=== PATIENT | female | born 1945 | race Caucasian/White ===

== ENCOUNTER → 2016-10-26 | Outpatient (CLI) | payer OTHER ==
[~2016-10-26] MED LIST: ACIDOPHILUS PO; ASPIRIN 32325 MG/TAB PO; DIABETA5 MG PO; FLOMAX 0.40.4 MG/CAP PO; LISINOPRIL-HYDR1 TA1 PO; LOVAZA1 GM PO; MULTIPLE VITAMI1 CAP PO; NIACIN500 M3 PO; PERCOCET 325 MG1 TA2 PO; VITAMIN D31000 IU PO; ZOFRAN ODT4 MG PO
== END ==
LOC: MC.RAD 11:20
DX: Z12.31 Encounter for screening mammogram for malignant neoplasm of breast (principal)

== ENCOUNTER 2017-01-22 22:38 | Emergency (ER) | payer OTHER, MEDICARE ==
[~2017-01-22] VITALS: Ht 162.6 cm; Wt 82.3 kg
[~2017-01-22 22:38] MED LIST changes: -FLOMAX 0.40.4 MG/CAP PO; -PERCOCET 325 MG1 TA2 PO; -ZOFRAN ODT4 MG PO
[2017-01-22 22:42] VITALS: TEMP 97.8
[2017-01-22 23:18] LABS: PH 8 (5-8); SQUAMOUS EPITHELIAL 0-2 /hpf; URINE APPEARANCE Clear; URINE BACTERIA None Seen /hpf; URINE BILIRUBIN Negative (NEGATIVE); URINE BLOOD 2+ (NEGATIVE); URINE COLOR Yellow; URINE GLUCOSE 2+ (NEGATIVE); URINE KETONE Negative (NEGATIVE); URINE RBC >50 /hpf; URINE UROBILINOGEN Negative (NEGATIVE)
[2017-01-22 23:52] LABS: BASO % 0.3 % (0.0-2.0); EOS % 0.2 % (0-4.0); GRAN # 10.2 (1.4-6.5); GRAN % 84.1 % (42.2-75.2); HEMATOCRIT 38.6 % (37.0-47.0); HEMOGLOBIN 12.7 g/dl (12.5-16.0); LYMPH # 1.3 (1.2-3.4); LYMPH % 10.7 % (20.0-51.0); MEAN CELL VOLUME 81 fl (80.0-100.0); MEAN CORPUSCULAR HEMOGLOBIN 27 pg (27.0-31.0); MEAN CORPUSCULAR HGB CONC 33 g/dl (33.0-37.0); MEAN PLATELET VOLUME 9.9 fl (7.4-10.4); MONO # 0.4 (0.1-0.6); MONO % 3.5 % (1.7-9.3); PLATELET COUNT 250 K/mm3 (130-400); RED BLOOD COUNT 4.78 M/mm3 (4.10-5.30); REDCELL DISTRIBUTION WIDTH-CV 14.9 % (11.5-14.5); WHITE BLOOD COUNT 12.1 K/mm3 (4.8-10.8)
[2017-01-22 23:59] LABS: CALCIUM 9.2 mg/dL (8.4-10.2); CREATININE, serum 0.63 mg/dL (0.52-1.25); POTASSIUM 3.6 mmol/L (3.4-5.0)
[2017-01-23] MEDS ORDERED: PERCOCET 325 MG1 TA2 PO (01:05)
[2017-01-23] MEDS ORDERED: FLOMAX 0.40.4 MG/CAP PO (01:05)
[2017-01-23] MEDS ORDERED: ZOFRAN ODT4 MG PO (01:05)
[2017-01-23 01:30] VITALS: BP 159/73; PULSE 65
== END 2017-01-23 01:30 | disposition home or self-care (01) ==
LOC: COL.ER 22:38
PROVIDERS: Emergency Medicine
DX: N20.1 Calculus of ureter (principal); E11.9 Type 2 diabetes mellitus without complications; I10 Essential (primary) hypertension; Z79.4 Long term (current) use of insulin; Z79.84 Long term (current) use of oral hypoglycemic drugs; Z79.82 Long term (current) use of aspirin; Z90.49 Acquired absence of other specified parts of digestive tract

== ENCOUNTER → 2017-11-25 | Outpatient (CLI) | payer OTHER ==
[~2017-11-25] MED LIST changes: +FLOMAX 0.40.4 MG/CAP PO; +PERCOCET 325 MG1 TA2 PO; +ZOFRAN ODT4 MG PO
== END ==
LOC: MC.RAD 07:00
DX: Z12.31 Encounter for screening mammogram for malignant neoplasm of breast (principal)

== ENCOUNTER 2018-09-22 13:45 | Emergency (ER) | payer OTHER ==
[~2018-09-22] VITALS: Ht 160 cm; Wt 86.4 kg
[2018-09-22 14:01] VITALS: BP 144/72; TEMP 98.9
[2018-09-22 14:44] LABS: HEMATOCRIT 40.7 % (37.0-47.0); HEMOGLOBIN 13.5 g/dl (12.5-16.0); MEAN CELL VOLUME 81 fl (80.0-100.0); MEAN CORPUSCULAR HEMOGLOBIN 27 pg (27.0-31.0); MEAN CORPUSCULAR HGB CONC 33 g/dl (33.0-37.0); MEAN PLATELET VOLUME 10.2 fl (7.4-10.4); PLATELET COUNT 249 K/mm3 (130-400); RED BLOOD COUNT 5.05 M/mm3 (4.10-5.30); REDCELL DISTRIBUTION WIDTH-CV 14.4 % (11.5-14.5)
[2018-09-22 15:16] LABS: ALBUMIN 4.4 gm/dL (3.5-5.0); BILIRUBIN,TOTAL 1.4 mg/dL (0.0-1.0); C-REACTIVE PROTEIN 4.9 mg/dL (0.0-0.9); CALCIUM 9.8 mg/dL (8.4-10.2); CREATININE, serum 0.73 (0.52-1.25); POTASSIUM 3.7 mmol/L (3.4-5.0); TOTAL PROTEIN 8.7 gm/dL (6.4-8.2)
[2018-09-22 15:26] LABS: BAND 7 % (0-10); EOSINOPHIL 1 % (0-4); LYMPHOCYTE 4 % (20.0-51.0); NEUTROPHILS 84 % (42.0-75.2); PLATELET ESTIMATE NORMAL (NORMAL)
[2018-09-22 15:27] LABS: STOMATOCYTE 1+
[2018-09-22 16:40] LABS: COLLECTION METHOD CLEAN CATCH
[2018-09-22 16:49] LABS: MUCOUS Present /lpf; PH 5 (5-8); SQUAMOUS EPITHELIAL 0-2 /hpf; URINE APPEARANCE Clear; URINE BACTERIA None Seen /hpf; URINE BILIRUBIN Negative (NEGATIVE); URINE BLOOD Negative (NEGATIVE); URINE COLOR Amber; URINE GLUCOSE Negative (NEGATIVE); URINE KETONE Negative (NEGATIVE); URINE LEUKOCYTE ESTERASE Negative (NEGATIVE); URINE NITRATE Negative (NEGATIVE); URINE PROTEIN(semi-quant) 1+ (NEGATIVE); URINE RBC 0-2 /hpf; URINE UROBILINOGEN >=4.0 mg/dL (NEGATIVE)
[2018-09-22] MEDS ORDERED: ZOFRAN ODT4 MG PO (17:14)
[2018-09-22] MEDS ORDERED: CEPHALEXIN500 M1 PO (17:14)
[2018-09-22 17:55] VITALS: PULSE 68
== END 2018-09-22 17:52 | disposition home or self-care (01) ==
LOC: COL.ER 13:45
PROVIDERS: Family Medicine
DX: N30.90 Cystitis, unspecified without hematuria (principal); R79.89 Other specified abnormal findings of blood chemistry; E11.9 Type 2 diabetes mellitus without complications; I10 Essential (primary) hypertension; Z79.82 Long term (current) use of aspirin
CPT/HCPCS: J1885; J2405; J2550; J7030

== ENCOUNTER → 2018-11-23 | Outpatient (CLI) | payer OTHER ==
[~2018-11-23] MED LIST changes: +CEPHALEXIN500 M1 PO
== END ==
LOC: SUN.DIA 10-09 15:27 → DIA.ED 11-02 14:39 → SUN.DIA 11-02 15:51 → DIA.ED 09:13
DX: E11.9 Type 2 diabetes mellitus without complications (principal); E78.5 Hyperlipidemia, unspecified; I10 Essential (primary) hypertension; E66.9 Obesity, unspecified; Z79.4 Long term (current) use of insulin

== ENCOUNTER → 2018-12-06 | Outpatient (CLI) | payer OTHER | LOC: DIA.ED 10:32 | DX: E11.9 Type 2 diabetes mellitus without complications (principal); E78.5 Hyperlipidemia, unspecified; I10 Essential (primary) hypertension; E66.9 Obesity, unspecified | CPT/HCPCS: G0108 ==

== ENCOUNTER → 2018-12-13 | Outpatient (CLI) | payer OTHER | LOC: DIA.ED 13:19 | DX: E11.9 Type 2 diabetes mellitus without complications (principal); E78.5 Hyperlipidemia, unspecified; I10 Essential (primary) hypertension; E66.9 Obesity, unspecified; Z79.4 Long term (current) use of insulin | CPT/HCPCS: G0109 ==

== ENCOUNTER → 2018-12-21 | Outpatient (CLI) | payer OTHER | LOC: MC.RAD 12-19 16:45 | DX: Z12.31 Encounter for screening mammogram for malignant neoplasm of breast (principal) ==

== ENCOUNTER → 2018-12-22 | Outpatient (CLI) | payer OTHER ==
[2018-12-23 02:23] LABS: RHEUMATOID FACTOR-SCREEN <15 IU/mL (0-29)
== END ==
LOC: COL.LAB 09:40
PROVIDERS: Orthopaedic Surgery
DX: M79.641 Pain in right hand (principal)

== ENCOUNTER → 2019-01-03 | Outpatient (CLI) | payer OTHER | LOC: DIA.ED 09:21 | DX: E11.9 Type 2 diabetes mellitus without complications (principal); E78.5 Hyperlipidemia, unspecified; E66.9 Obesity, unspecified; I10 Essential (primary) hypertension; Z79.4 Long term (current) use of insulin | CPT/HCPCS: G0109 ==

== ENCOUNTER → 2020-01-22 | Outpatient (CLI) | payer OTHER | LOC: MC.RAD 12-25 16:45 | DX: Z12.31 Encounter for screening mammogram for malignant neoplasm of breast (principal) ==

== ENCOUNTER → 2021-11-03 | Outpatient (CLI) | payer OTHER | LOC: DIA.ED 09:27 | DX: E11.65 Type 2 diabetes mellitus with hyperglycemia (principal); Z79.4 Long term (current) use of insulin; E78.5 Hyperlipidemia, unspecified; I10 Essential (primary) hypertension | CPT/HCPCS: G0108 ==

== ENCOUNTER 2021-11-12 18:05 | Emergency (ER) | payer OTHER ==
[~2021-11-12] VITALS: Ht 160 cm; Wt 77.3 kg
[2021-11-12 18:56] LABS: COLLECTION METHOD CLEAN CATCH
[2021-11-12 19:09] LABS: MUCOUS Present (NOT PRESENT); PH 5 (5-8); URINE APPEARANCE Hazy (CLEAR/HAZY); URINE BACTERIA None Seen /hpf (NONE SEEN); URINE BILIRUBIN Negative (NEGATIVE); URINE BLOOD Negative (NEGATIVE); URINE COLOR Yellow (YELLOW); URINE GLUCOSE 3+ (NEGATIVE); URINE KETONE Negative (NEGATIVE); URINE LEUKOCYTE ESTERASE Negative (NEGATIVE); URINE NITRATE Negative (NEGATIVE); URINE PROTEIN(semi-quant) 2+ (NEGATIVE); URINE RBC 0-2 /hpf (0-2); URINE UROBILINOGEN Negative (NEGATIVE)
[2021-11-12 19:25] LABS: BASO % 0.3 % (0.0-2.0); EOS % 0.1 % (0.0-4.0); GRAN # 5.4 K/mm3 (1.4-6.5); GRAN % 74.6 % (42.2-75.2); HEMATOCRIT 44.5 % (37.0-47.0); HEMOGLOBIN 14.8 g/dl (12.5-16.0); LYMPH # 0.9 K/mm3 (1.2-3.4); LYMPH % 12.1 % (20.0-51.0); MEAN CELL VOLUME 83 fl (80.0-100.0); MEAN CORPUSCULAR HEMOGLOBIN 28 pg (27-31); MEAN CORPUSCULAR HGB CONC 33 g/dl (33.0-37.0); MEAN PLATELET VOLUME 10.5 fl (7.4-10.4); MONO # 0.9 K/mm3 (0.1-0.6); MONO % 12.5 % (1.7-9.3); PLATELET COUNT 239 K/mm3 (130-400); RED BLOOD COUNT 5.34 M/mm3 (4.10-5.30); REDCELL DISTRIBUTION WIDTH-CV 13.9 % (11.5-14.5)
[2021-11-12 19:44] LABS: ALBUMIN 3.4 gm/dL (3.4-4.8); BILIRUBIN,TOTAL 0.6 mg/dL (0.2-1.2); CALCIUM 9.1 mg/dL (8.4-10.2); CREATININE, serum 1.05 mg/dL (0.57-1.11); POTASSIUM 3.7 mmol/L (3.5-4.5); TOTAL PROTEIN 7.8 gm/dL (6.2-8.1)
[2021-11-12 19:51] LABS: TROPONIN-I 0.018 ng/mL (0.00-0.033)
[2021-11-12 20:38] VITALS: TEMP 98.5
[2021-11-12 21:00] VITALS: BP 164/77; PULSE 63
== END 2021-11-12 21:15 | disposition home or self-care (01) ==
LOC: COL.ER 18:05
PROVIDERS: Nurse Practitioner Primary Care
DX: U07.1 COVID-19 (principal); I10 Essential (primary) hypertension; E11.9 Type 2 diabetes mellitus without complications
CPT/HCPCS: J2405; J7030; Q9967

== ENCOUNTER → 2022-01-07 | Outpatient (CLI) | payer OTHER | LOC: DIA.ED | DX: E11.65 Type 2 diabetes mellitus with hyperglycemia (principal); Z79.4 Long term (current) use of insulin; E78.5 Hyperlipidemia, unspecified; I10 Essential (primary) hypertension | CPT/HCPCS: G0108 ==

== ENCOUNTER 2022-07-12 22:03 | Emergency (ER) | payer SELFPAY ==
[~2022-07-12] VITALS: Ht 162.6 cm; Wt 85.0 kg
[2022-07-12 22:05] VITALS: TEMP 98.3
[2022-07-12 23:18] LABS: HEMATOCRIT 40.4 % (37.0-47.0); HEMOGLOBIN 13.7 g/dl (12.5-16.0); MEAN CELL VOLUME 83 fl (80.0-100.0); MEAN CORPUSCULAR HEMOGLOBIN 28 pg (27-31); MEAN CORPUSCULAR HGB CONC 34 g/dl (33.0-37.0); MEAN PLATELET VOLUME 10.1 fl (7.4-10.4); PLATELET COUNT 261 K/mm3 (130-400); RED BLOOD COUNT 4.86 M/mm3 (4.10-5.30); REDCELL DISTRIBUTION WIDTH-CV 13.4 % (11.5-14.5)
[2022-07-12 23:31] LABS: ALBUMIN 3.7 gm/dL (3.4-4.8); BILIRUBIN,TOTAL 0.5 mg/dL (0.2-1.2); CREATININE, serum 1.06 mg/dL (0.57-1.11); POTASSIUM 3.8 mmol/L (3.5-4.5); TOTAL PROTEIN 7.8 gm/dL (6.2-8.1)
[2022-07-13 00:03] LABS: LYMPHOCYTE 38 % (20.0-51.0); NEUTROPHILS 61 % (42.0-75.2); PLATELET ESTIMATE NORMAL (NORMAL)
[2022-07-13 01:32] VITALS: BP 137/85; PULSE 66
== END 2022-07-13 01:52 | disposition home or self-care (01) ==
LOC: COL.ER 22:03
PROVIDERS: Nurse Practitioner
DX: S16.1XXA Strain of muscle, fascia and tendon at neck level, initial encounter (principal); S29.012A Strain of muscle and tendon of back wall of thorax, initial encounter; S50.312A Abrasion of left elbow, initial encounter; S20.212A Contusion of left front wall of thorax, initial encounter; R51.9 Headache, unspecified; I10 Essential (primary) hypertension; V43.52XA Car driver injured in collision with other type car in traffic accident, initial encounter; Y92.410 Unspecified street and highway as the place of occurrence of the external cause
CPT/HCPCS: J0360; J3010; Q9967

== ENCOUNTER 2023-06-28 21:31 | Emergency (ER) | payer OTHER ==
[~2023-06-28] VITALS: Ht 160 cm; Wt 77.3 kg
[~2023-06-28 21:31] MED LIST changes: +ACIDOPHILIS PO; -ACIDOPHILUS PO; +APRESOLINE 25MG25 MG PO; +GLUCOTROL XL10 MG PO; +HCTZ 25MG TAB25 MG PO; +INSULIN N (N100 U/ML SQ; +MOUNJARO5 MG/0.5 M SQ; +NORVASC 5MG5 MG/TAB PO; +PAXIL40 MG PO; +PRINIVIL10 MG PO
[2023-06-28 21:33] VITALS: TEMP 98.6
[2023-06-28] MEDS ORDERED: Morphine 4 MG/ML VIAL IV ONE ×2 (21:45→22:00)
[2023-06-28] MEDS ORDERED: Ondansetron 4 MG/2 ML VIAL IV ONE (21:45)
[2023-06-28 21:55] LABS: ARTERIAL BLD GAS O2 SATURATION 91.1 % (92-100); ARTERIAL BLD GAS TCO2 CT 18.8; ARTERIAL BLOOD GAS BASE EXCESS -4.5 (-2-2); ARTERIAL BLOOD GAS HCO3 17.9 meq/L (22-26); ARTERIAL BLOOD GAS PCO2 26.6 mmHg (35-45); ARTERIAL BLOOD GAS PO2 61.9 mmHg (80-100); ARTERIAL BLOOD GAS pH 7.45 (7.35-7.45)
[2023-06-28 21:56] LABS: BASO # 0.1 K/mm3 (0.0-0.2); BASO % 0.3 % (0.0-2.0); GRAN # 13.9 K/mm3 (1.4-6.5); GRAN % 83.1 % (42.2-75.2); HEMATOCRIT 41.2 % (37.0-47.0); HEMOGLOBIN 13.5 g/dl (12.5-16.0); LYMPH # 1.3 K/mm3 (1.2-3.4); LYMPH % 7.9 % (20.0-51.0); MEAN CELL VOLUME 87 fl (80.0-100.0); MEAN CORPUSCULAR HEMOGLOBIN 29 pg (27-31); MEAN CORPUSCULAR HGB CONC 33 g/dl (33.0-37.0); MONO # 1.3 K/mm3 (0.1-0.6); PLATELET COUNT 356 K/mm3 (130-400); RED BLOOD COUNT 4.72 M/mm3 (4.10-5.30); REDCELL DISTRIBUTION WIDTH-CV 13.5 % (11.5-14.5)
[2023-06-28 22:04] LABS: ALBUMIN 3.1 gm/dL (3.4-4.8); BILIRUBIN,TOTAL 1.1 mg/dL (0.2-1.2); CALCIUM 9.7 mg/dL (8.4-10.2); CREATININE, serum 0.88 mg/dL (0.57-1.11); POTASSIUM 4.1 mmol/L (3.5-4.5); TOTAL PROTEIN 7.4 gm/dL (6.2-8.1)
[2023-06-28 22:12] LABS: TROPONIN-I 0.055 ng/mL (0.00-0.033)
[2023-06-28] MEDS ORDERED: DESYREL 50MG50 MG PO (22:12)
[2023-06-28 22:13] LABS: INR 1.4 (0.8-3.0); PROTHROMBIN TIME 14.9 SECONDS (9.7-12.8)
[2023-06-28] MEDS ORDERED: SILVADENE CREAM1 TU TP (22:13)
[2023-06-28] MEDS ORDERED: CIPRO 500MG TA500 MG PO (22:13)
[2023-06-28] MEDS ORDERED: GENTAMICIN TOPI15 GM TP (22:13)
[2023-06-28] MEDS ORDERED: MOUNJARO5 MG/0.5 M SQ (22:14)
[2023-06-28 22:15] LABS: PARTIAL THROMBOPLASTIN TIME 30.7 SECONDS (26.0-37.0)
[2023-06-28] MEDS ORDERED: DOPamine/Dextrose 5%-Water 250 ML IV ONE (22:15)
[2023-06-28] MEDS ORDERED: ACTOS 15MG TAB15 MG PO (22:15)
[2023-06-28] MEDS ORDERED: NORVASC 5MG5 MG/TAB PO (22:15)
[2023-06-28] MEDS ORDERED: PRILOSEC 20MG20 MG PO (22:15)
[2023-06-28] MEDS ORDERED: fentaNYL 50 MCG/ML 2 ML VIAL IV ONE (22:15)
[2023-06-28] MEDS ORDERED: TOPROL XL100 MG PO (22:15)
[2023-06-28] MEDS ORDERED: NOVOLIN N100 U/ML SQ (22:17)
[2023-06-28] MEDS ORDERED: APRESOLINE 25MG25 MG PO (22:17)
[2023-06-28] MEDS ORDERED: PAXIL40 MG PO (22:18)
[2023-06-28] MEDS ORDERED: CRESTOR20 MG PO (22:18)
[2023-06-28] MEDS ORDERED: VITAMIN D31000 I1 PO (22:20)
[2023-06-28] MEDS ORDERED: ASPIRIN 81M81 MG/TA2 PO (22:20)
[2023-06-28] MEDS ORDERED: EPA FISH OIL1 SGL PO (22:20)
[2023-06-28] MEDS ORDERED: SANTYL30 TP (22:21)
[2023-06-28] MEDS ORDERED: cefTRIAXone 1 G in Water For Injection,Sterile 10 ML IV ONE (22:30)
[2023-06-28] MEDS ORDERED: Furosemide 40 MG/4 ML VIAL IV ONE ×2 (22:30→23:00)
[2023-06-28] MEDS ORDERED: methylPREDNISolone Sod Succ 125 MG/2 ML VIAL IV ONE (22:30)
[2023-06-28] MEDS ORDERED: Glucagon 1 MG VIAL IV ONE (22:45)
[2023-06-28] MEDS ORDERED: Midazolam 2 MG/2 ML VIAL IV ONE (22:45)
[2023-06-28 23:11] LABS: COLLECTION METHOD CATHETER
[2023-06-28 23:20] VITALS: BP 165/57; PULSE 36
[2023-06-28 23:20] LABS: PH 5.5 (5.0-8.5); URINE APPEARANCE CLEAR (CLEAR/HAZY); URINE BLOOD NEGATIVE (NEGATIVE); URINE COLOR YELLOW (YELLOW); URINE GLUCOSE 3+ (NEGATIVE); URINE KETONE 1+ (NEGATIVE); URINE NITRATE NEGATIVE (NEGATIVE); URINE PROTEIN(semi-quant) 2+ (NEGATIVE); URINE UROBILINOGEN 0.2 E.U/dL (0.2-1.0)
== END 2023-06-28 23:34 | disposition short-term general hospital (02) ==
LOC: COL.ER 21:31
PROVIDERS: Emergency Medicine
DX: I11.0 Hypertensive heart disease with heart failure (principal); I50.1 Left ventricular failure, unspecified; I44.2 Atrioventricular block, complete; E11.65 Type 2 diabetes mellitus with hyperglycemia; R79.89 Other specified abnormal findings of blood chemistry; R09.02 Hypoxemia; Z79.899 Other long term (current) drug therapy
CPT/HCPCS: A4314; J0696; J1265; J1610; J1940; J2250; J2270; J2405; J2930; J3010

== ENCOUNTER 2023-11-24 22:36 | Inpatient (IN) | payer MEDICARE ==
[~2023-11-24] VITALS: Ht 160 cm; Wt 76.8 kg
[~2023-11-24 22:36] MED LIST changes: +ACTOS 15MG TAB15 MG PO; +ASPIRIN 81M81 MG/TA2 PO; +CIPRO 500MG TA500 MG PO; +CRESTOR20 MG PO; +DESYREL 50MG50 MG PO; +EPA FISH OIL1 SGL PO; +GENTAMICIN TOPI15 GM TP; +NOVOLIN N100 U/ML SQ; +PRILOSEC 20MG20 MG PO; +SANTYL30 TP; +SILVADENE CREAM1 TU TP; +TOPROL XL100 MG PO; +VITAMIN D31000 I1 PO
[2023-11-24 23:10] LABS: BASO % 0.2 % (0.0-2.0); EOS % 0.2 % (0.0-4.0); GRAN # 14.2 K/mm3 (1.4-6.5); GRAN % 83.3 % (42.2-75.2); HEMATOCRIT 39.9 % (37.0-47.0); HEMOGLOBIN 13.3 g/dl (12.5-16.0); LYMPH # 1.4 K/mm3 (1.2-3.4); LYMPH % 8.4 % (20.0-51.0); MEAN CELL VOLUME 83 fl (80.0-100.0); MEAN CORPUSCULAR HEMOGLOBIN 28 pg (27-31); MEAN CORPUSCULAR HGB CONC 33 g/dl (33.0-37.0); MEAN PLATELET VOLUME 9.8 fl (7.4-10.4); MONO # 1.3 K/mm3 (0.1-0.6); MONO % 7.4 % (1.7-9.3); PLATELET COUNT 385 K/mm3 (130-400); RED BLOOD COUNT 4.83 M/mm3 (4.10-5.30); REDCELL DISTRIBUTION WIDTH-CV 13.2 % (11.5-14.5)
[2023-11-24 23:19] LABS: COLLECTION METHOD CATHETER
[2023-11-24 23:24] LABS: ALBUMIN 2.9 g/dL (3.4-4.8); BILIRUBIN,TOTAL 0.7 mg/dL (0.2-1.2); C-REACTIVE PROTEIN 27.83 mg/dL (0.00-0.50); CALCIUM 9.9 mg/dL (8.4-10.2); CREATININE, serum 1.03 mg/dL (0.57-1.11); POTASSIUM 3.9 mEq/L (3.5-4.5)
[2023-11-24 23:29] LABS: TROPONIN-I 0.015 ng/mL (0.00-0.033)
[2023-11-24 23:32] LABS: PH 5.5 (5.0-8.5); URINE APPEARANCE CLEAR (CLEAR/HAZY); URINE BLOOD NEGATIVE (NEGATIVE); URINE COLOR YELLOW (YELLOW); URINE GLUCOSE 3+ (NEGATIVE); URINE KETONE TRACE (NEGATIVE); URINE NITRATE NEGATIVE (NEGATIVE); URINE PROTEIN(semi-quant) 1+ (NEGATIVE); URINE UROBILINOGEN 0.2 E.U/dL (0.2-1.0)
[2023-11-24] MEDS ORDERED: NS 1,000 ML IV ONE (23:45)
[2023-11-25] VITALS (10 sets, daily range): BP systolic 119–176; BP diastolic 72–92; PULSE 68–88; TEMP 97.8–99.8
[2023-11-25] MEDS ORDERED: NS 50 ML IV SCH (00:01)
[2023-11-25] MEDS ORDERED: Iohexol 300 - 100 ML VIAL IV ONE (00:01)
[2023-11-25] MEDS ORDERED: Acetaminophen 500 MG TAB PO ONE (01:15)
[2023-11-25] MEDS ORDERED: Insulin Glargine-ygfn (Lantus) SQ ONE (01:15)
[2023-11-25] MEDS ORDERED: hydrALAZINE 20 MG/ML 1 ML VIAL IV ONE (01:15)
[2023-11-25] MEDS ORDERED: cefTRIAXone 1 G in Water For Injection,Sterile 10 ML IV ONE (02:00)
[2023-11-25] MEDS ORDERED: Ondansetron 4 MG/2 ML VIAL IV PRN (02:30)
[2023-11-25] MEDS ORDERED: Acetaminophen 325 MG TAB PO PRN (02:30)
[2023-11-25] MEDS ORDERED: Albuterol/Ipratropium 3 MG-0.5 MG/3 ML Neb Soln IH PRN (02:30)
[2023-11-25] MEDS ORDERED: hydrALAZINE 20 MG/ML 1 ML VIAL IV PRN (02:30)
[2023-11-25] MEDS ORDERED: Dextrose 50% Water 25 GM/50 ML SYRINGE IV PRN (03:00)
[2023-11-25] MEDS ORDERED: Dextrose (Glucose) 15 GM (4 x 3.75 GM) Chewable TABLET PACK PO PRN (03:00)
[2023-11-25] MEDS ORDERED: Glucagon 1 MG VIAL IM PRN (03:00)
[2023-11-25] MEDS ORDERED: Azithromycin 500 MG in NS 250 ML IV SCH (03:00)
[2023-11-25] MEDS ORDERED: NS 1,000 ML IV ONE (03:30)
--- NOTE | 2023-11-25 03:30 | NUR ---
PT ARRIVED TO THE UNIT VIA GURNEY BY MINER. ABLE TO AMBULATE WITH ONE PERSON ASSIST TO THE BATHROOM TO URINATE. BG RECHECK AND SSI GIVEN PER PROVIDER. PT C/O MILD LEFT EPIGASTRIC PAIN RATED 6/10, TYLENOL GIVEN. ADMISSION ASSESSMENT COMPLETE AND MED REQ SOMEWHAT ATTEMPTED HOWEVER BC PT HAS NOT TAKEN HER MEDS FOR ABOUT A WEEK SHE IS UNCERTAIN ABOUT THE LAST TIME SHE TOOK THEM. PT DOES REPORT FALLING DOWN A DRIVEWAY AND HAS A HEALING ABRASION TO HER LEFT KNEE AND IS UNCERTAIN OF TIMEFRAME ON THE FALL. MEMORY IS NOT RALIABLE NEEDS CONSTANT REMINDERS AND CUES. FALL PRECAUTONS IN PLACE, CALL LIGHT WITHIN REACH. PT ALSO ORIENTED TO THE ROOM AND AWARE THAT WED LIKE HER TO CALL TO GET UP TO THE RESTROOM.
[2023-11-25] MEDS ORDERED: NOVOLIN R100 UNIT/1 (04:03)
[2023-11-25] MEDS ORDERED: LANTUS100 U/ML SQ (04:05)
[2023-11-25] MEDS ORDERED: Insulin Lispro (HumaLOG) SQ SCH (04:45)
[2023-11-25] MEDS ORDERED: Clopidogrel 75 MG TAB PO SCH (09:00)
--- NOTE | 2023-11-25 09:30 | NUR ---
PATIENT SITTING IN BED EATING BREAKFAST THIS MORNING. SHIFT ASSESSMENT COMPLETED. IVF INFUSING. PATIENT HAVING DIFFICULTY TAKING DEEP BREATHES AND EXPERIENCES DYSPNEA ON EXCERTION. COMPLAINS OF L SIDED UPPER BODY PAIN, MEDICATION GIVEN PER eMAR. A SPECIALTY BED WAS ORDERED DUE TO PATIENTS RECENT HISTORY OF WOUNDS. PATIENT DENIES ANY ADDITIONAL NEEDS AT THIS TIME. CALL LIGHT WITHIN REACH. WILL CONTINUE TO MONITOR.
--- NOTE | 2023-11-25 09:43 | NUR ---
PATIENT NOW COMPLAINS OF 10/10 PAIN TO LEFT UPPER BODY. THIS RN SPOKE WITH DR. COLON AND INSTRUCTED TO GIVE 5MG ROXICODONE. THIS RN THEN NOTED THAT PATIENT HAS A HISTORY OF OPIOID ALLERGIES. DISCUSSED WITH ROBERTO, PHARMACIST, AND INSTRUCTIONS TO ADMINISTER FIRST DOSE AND MONITOR FOR ADVERSE REACTIONS. DISCUSSED WITH PATIENT AND SHE IS COMFORTABLE WITH THIS.
[2023-11-25] MEDS ORDERED: oxyCODONE 5 MG TAB PO PRN (09:45)
[2023-11-25] MEDS ORDERED: CRESTOR20 MG PO (10:33)
[2023-11-25] MEDS ORDERED: PAXIL40 MG PO (10:34)
[2023-11-25] MEDS ORDERED: PRILOSEC 20MG20 MG PO (10:35)
[2023-11-25] MEDS ORDERED: ADALAT CC30 MG PO (10:35)
[2023-11-25] MEDS ORDERED: NEURONTIN600 MG/TAB PO (10:35)
[2023-11-25] MEDS ORDERED: APRESOLINE 10MG10 MG PO (10:36)
[2023-11-25] MEDS ORDERED: PLAVIX 75MG TAB75 MG PO (10:36)
[2023-11-25] MEDS ORDERED: VITAMIN D31000 I1 PO (10:37)
[2023-11-25] MEDS ORDERED: EPA FISH OIL1 SGL PO (10:37)
[2023-11-25] MEDS ORDERED: COREG 25MG25 MG/TAB PO (10:38)
[2023-11-25] MEDS ORDERED: LANTUS SOLOS100 U/ML SQ (10:39)
[2023-11-25] MEDS ORDERED: INSULIN AS100 UNIT/3 SQ ×2 (10:40→10:41)
[2023-11-25] MEDS ORDERED: PARoxetine HCL 10 MG TABLET PO SCH (11:30)
[2023-11-25 11:54] LABS: INR 1.3 (0.8-3.0); PROTHROMBIN TIME 14.3 SECONDS (9.7-12.8)
[2023-11-25] MEDS ORDERED: [UNRECOGNIZED DRUG - OTHER] VG SCH (12:00)
[2023-11-25] MEDS ORDERED: MICONAZOLE VG SCH (12:00)
[2023-11-25] MEDS ORDERED: MELATIN 3 MG-11 TAB PO (12:41)
--- NOTE | 2023-11-25 13:28 | NUR ---
D: C[employer] Plant Worker stopped by room on rounds. A: Pt was resting and content sitting in her chair. Pt is retired from working with the fire department. Pt asked for prayer, assignment editor prayed with her. Pt appreciated the visit. P: [employer] Plant Worker informed pt that if she needed anything else from the assignment editor area to let her nurse know. C[employer] Con[employer] Plant Worker will follow up as needed.
[2023-11-25] MEDS ORDERED: Gabapentin 300 MG CAP PO SCH (14:00)
[2023-11-25 14:12] LABS: INR 1.3 (0.8-3.0); PROTHROMBIN TIME 14.6 SECONDS (9.7-12.8)
--- NOTE | 2023-11-25 15:30 | NUR ---
sand control worker and SW Student attempted to meet with patient but she is currently in a procedure. SW reviewed PT and OT recommendations. PT recommended home with family, OT recommended HH vs SNF. SW contacted patient's daughter, Татьяна, whom expressed patient's son, Toby, was now in the patient's room and the social work therapist could speak with him. SW and SW Student met with patient's son, Toby. Toby reported he believes patient's PCP is Dr. Shelton, pharmacy is [facility]. Toby was uncertain if patient had a DPOA-HC but if so it would either but him or Татьяна. DME is walker and cane. Toby stated patient was doing well with the cane up until a couple days ago she started using the walker more. Toby reported normally patient had been independent with ADLS and could drive sometimes but has Татьяна or Toby to transport when needed. SW discussed discharge planning. SW explained PT and OT recommendations and provided the Medicare.gov list of options for HH and SNF. Toby reported he was uncertain what the patient would want at this time but she has had both services before. Toby reported patient was at [facility] for rehab before and does not believe she would be opposed to going to a nursing facility for rehab if recommended by the hospital team. SW explained social work would continue to follow patient's care and determine what services would be recommended for patient. Discharge plan: Home pending PT and OT recommendations
[2023-11-25] MEDS ORDERED: cefTRIAXone 1 G in Water For Injection,Sterile 10 ML IV SCH (21:00)
[2023-11-25] MEDS ORDERED: Atorvastatin 40 MG TAB PO SCH (21:00)
[2023-11-25] MEDS ORDERED: Rosuvastatin 20 MG **** subs to Atorvastatin 40 MG PO SCH (21:00)
--- NOTE | 2023-11-25 23:48 | NUR ---
PT ALERT AND ORIENTED, YET FORGETFUL AND IN NEED OF REMINDERS. VERY PLEASANT AND AFTER PROCEDURE TODAY IS FEELING MUCH BETTER, DOES C/O OF SOME MODERATE BACK PAIN RATED 7/10, PAIN MED ADMINISTERED. VITAL SIGNS WNL AND IS ABLE TO AMBULATE TO RESTROOM WITH ONE PERSON ASSIST. SHIFT ASSESSMENT COMPLETED, ALL HS MEDS ADMINISTERED. IV TO RW PATENT. FALL PRECAUTIONS IN PLACE CALL LIGHT WITHIN REACH.
[2023-11-25 23:51] LABS: BODY FLUID PH (AMS) 8 (())
[2023-11-26] VITALS (14 sets, daily range): BP systolic 108–176; BP diastolic 60–81; PULSE 78–96; TEMP 97.9–100.7
[2023-11-26 06:14] LABS: BASO % 0.2 % (0.0-2.0); EOS # 0.1 K/mm3 (0.0-0.7); EOS % 0.7 % (0.0-4.0); GRAN # 14.7 K/mm3 (1.4-6.5); GRAN % 83.4 % (42.2-75.2); LYMPH # 1.4 K/mm3 (1.2-3.4); LYMPH % 7.7 % (20.0-51.0); MEAN CORPUSCULAR HGB CONC 33 g/dl (33.0-37.0); MEAN PLATELET VOLUME 10.2 fl (7.4-10.4); MONO # 1.3 K/mm3 (0.1-0.6); MONO % 7.3 % (1.7-9.3); PLATELET COUNT 356 K/mm3 (130-400); RED BLOOD COUNT 4.07 M/mm3 (4.10-5.30); REDCELL DISTRIBUTION WIDTH-CV 13.4 % (11.5-14.5)
[2023-11-26 06:16] LABS: HEMATOCRIT 33.5 % (37.0-47.0); MEAN CELL VOLUME 82 fl (80.0-100.0); MEAN CORPUSCULAR HEMOGLOBIN 27 pg (27-31)
[2023-11-26 06:32] LABS: CALCIUM 9.1 mg/dL (8.4-10.2); CREATININE, serum 0.84 mg/dL (0.57-1.11); POTASSIUM 3.5 mEq/L (3.5-4.5)
--- NOTE | 2023-11-26 07:40 | NUR ---
Bedside report received from DANIELLE Rivera. Pt resting in bed with no complaints. Call light within reach.
[2023-11-26 08:25] LABS: PLEURAL FLUID RBC 4000 /mm3 (0-0); PLEURAL FLUID WBC 5137 /mm3
[2023-11-26 08:26] LABS: PLEURAL FLUID COLOR YELLOW
[2023-11-26 08:27] LABS: PLEURAL FLUID APPEARANCE CLOUDY
--- NOTE | 2023-11-26 08:29 | NUR ---
Pt awake in bed eating breakfast. Shift assessment completed. VSS. Pt repositioned in bed per request. INT to Rt forearm CDI. Pt states she has generalized pain rating 3/10. Telemetry in place. Pt has no request at this time. Call light within reach and fall precautions in place.
[2023-11-26] MEDS ORDERED: Clopidogrel 75 MG TAB PO SCH (09:00)
[2023-11-26] MEDS ORDERED: Omega-3 Fatty Acid Esters (OTC) 1,000 MG CAP PO SCH (09:00)
[2023-11-26] MEDS ORDERED: Cholecalciferol (Vit D3) 1000 Units TAB PO SCH (09:00)
[2023-11-26] MEDS ORDERED: Insulin Glargine-ygfn (Lantus) SQ SCH (09:00)
--- NOTE | 2023-11-26 14:15 | NUR ---
Data: Patient politely declined spiritual care visit offered during Crutcher Helper rounds. Patient was eating her lunch. Assessment: None. Patient declined. Plan of Care: Chaplains will remain available as needed/requested while Patient is admitted to this hospital.
[2023-11-27] VITALS (14 sets, daily range): BP systolic 134–184; BP diastolic 68–91; PULSE 69–85; TEMP 97.9–98.6
--- NOTE | 2023-11-27 01:51 | NUR ---
Pt sitting up in recliner at beginning of shift and had been up most of the day. Agrreable of getting back into bed, has mild pain rated 4/10 in back, tylenol given.Incision site on back CDI with bandage covering. Assessed, all HS meds administered. Call light within reach, fall precautions in place.
[2023-11-27 06:54] LABS: BASO % 0.3 % (0.0-2.0); EOS # 0.2 K/mm3 (0.0-0.7); EOS % 1.7 % (0.0-4.0); GRAN # 8.7 K/mm3 (1.4-6.5); GRAN % 75.4 % (42.2-75.2); HEMOGLOBIN 10.4 g/dl (12.5-16.0); LYMPH # 1.6 K/mm3 (1.2-3.4); LYMPH % 13.7 % (20.0-51.0); MEAN CELL VOLUME 83 fl (80.0-100.0); MEAN CORPUSCULAR HEMOGLOBIN 27 pg (27-31); MEAN CORPUSCULAR HGB CONC 32 g/dl (33.0-37.0); MEAN PLATELET VOLUME 10.2 fl (7.4-10.4); MONO % 8.4 % (1.7-9.3); PLATELET COUNT 358 K/mm3 (130-400); RED BLOOD COUNT 3.88 M/mm3 (4.10-5.30); REDCELL DISTRIBUTION WIDTH-CV 13.5 % (11.5-14.5)
[2023-11-27 06:59] LABS: HEMATOCRIT 32.2 % (37.0-47.0)
[2023-11-27 07:10] LABS: CREATININE, serum 0.81 mg/dL (0.57-1.11); POTASSIUM 3.3 mEq/L (3.5-4.5)
--- NOTE | 2023-11-27 07:11 | NUR ---
Bedside report received from DANIELLE Rivera. Pt resting in bed with no complaints. Call light within reach.
--- NOTE | 2023-11-27 08:45 | NUR ---
Pt awake in bed eating breakfast. Shift assessment completed. VSS. INT to Rt forearm patent with no swelling, redness, or drainage. Pt is A&O x4. Pt has complaints of generalized pain rating 4/10. Telemetry in place. Pt has no complaints at this time. Call light within reach and fall precautions in place.
--- NOTE | 2023-11-27 20:00 | NUR ---
Assessment complete. A&Ox3. Denies nausea/shortness of breath. VS stable-received hydralazine at 1900 due to elevated blood pressure. Down to 160s/80s now. TELE reorting regular paced. Currently on RA. 20g right AC INT flushes without difficulty. No s/s of infiltration noted. Bandaid to left side/back CDI. Plan of care discussed for this shift to include meds/pain control/calling for questions/concerns. Verbalizes understanding. Call light in reach. Will monitor.
--- NOTE | 2023-11-27 23:45 | NUR ---
Report from PCT that patients blood pressure is 180s/80s. Taken by this nurse manually-148/62. Also c/o pain to left side/back-rating pain 5/10 on pain scale. Oxcycodone given per dr order. Will monitor.
--- NOTE | 2023-11-28 01:51 | NUR ---
Patient resting eyes closed. No s/s of pain or discomfort noted. Will monitor.
[2023-11-28 03:34] VITALS: BP 164/88; PULSE 73; TEMP 98.3
[2023-11-28 03:48] VITALS: BP_SYST 164
--- NOTE | 2023-11-28 05:44 | NUR ---
Patient had an uneventful night. Did received one dose of hydralazine at this change for elevated blood pressure of 180s/80s. C/O pain and received tylenol with no relief-oxycodone given x2 with good results. INT to right AC flushes without difficulty-no s/s of infiltration noted. Currently on RA. Denies current questions/concerns. Call light in reach. Will monitor.
--- NOTE | 2023-11-28 07:13 | NUR ---
Bedside report received from DANIELLE Alberto. Pt awake in bed with no complaints. Call light within reach and fall precautions in place.
[2023-11-28 07:17] LABS: BASO % 0.3 % (0.0-2.0); EOS # 0.2 K/mm3 (0.0-0.7); EOS % 1.6 % (0.0-4.0); GRAN # 9.1 K/mm3 (1.4-6.5); GRAN % 76.7 % (42.2-75.2); HEMOGLOBIN 10.8 g/dl (12.5-16.0); LYMPH # 1.6 K/mm3 (1.2-3.4); LYMPH % 13.7 % (20.0-51.0); MEAN CELL VOLUME 84 fl (80.0-100.0); MEAN CORPUSCULAR HEMOGLOBIN 26 pg (27-31); MEAN CORPUSCULAR HGB CONC 31 g/dl (33.0-37.0); MEAN PLATELET VOLUME 9.9 fl (7.4-10.4); MONO # 0.8 K/mm3 (0.1-0.6); MONO % 6.8 % (1.7-9.3); PLATELET COUNT 406 K/mm3 (130-400); RED BLOOD COUNT 4.09 M/mm3 (4.10-5.30); REDCELL DISTRIBUTION WIDTH-CV 13.5 % (11.5-14.5)
[2023-11-28 07:23] LABS: HEMATOCRIT 34.4 % (37.0-47.0)
[2023-11-28 07:36] LABS: CALCIUM 9.2 mg/dL (8.4-10.2); CREATININE, serum 0.73 mg/dL (0.57-1.11); POTASSIUM 3.4 mEq/L (3.5-4.5)
[2023-11-28 07:40] VITALS: BP 196/98; PULSE 90; TEMP 98.4
[2023-11-28 08:19] VITALS: BP_SYST 196
--- NOTE | 2023-11-28 08:20 | NUR ---
Pt awake in room finishing breakfast upon entry to room. Pt requesting to use bathroom. Assisted pt to bathroom and to recliner with no complications. Shift assessment completed. VSS with an elevated BP of 196/98. PRN Hydralazine administered per emar. Pt denies pain at this time. INT to Rt forearm patent with no swelling, redness, or drainage. Pt paced on telemetry. Pt has no complaints at this time. Call light within reach and fall precautions in place.
[2023-11-28] MEDS ORDERED: LEVAQUIN 750MG750 M1 PO (08:43)
[2023-11-28] MEDS ORDERED: FLUCONAZOLE PO ONE (08:45)
[2023-11-28] MEDS ORDERED: NIFEdipine XL 30 MG TAB PO SCH (09:00)
[2023-11-28] MEDS ORDERED: Carvedilol 25 MG TAB PO SCH (09:00)
[2023-11-28] MEDS ORDERED: Azithromycin 250 MG TAB PO SCH (09:00)
[2023-11-28] MEDS ORDERED: ROXICODONE 55 MG/TAB PO (10:41)
[2023-11-28] MEDS ORDERED: levoFLOXacin 750 MG TAB PO SCH (10:45)
[2023-11-28 11:40] VITALS: BP 175/76; PULSE 74; TEMP 97.4
[2023-11-28 12:37] VITALS: BP_SYST 175
--- NOTE | 2023-11-28 12:37 | NUR ---
Discharge instructions provided to pt and pt verbalized understanding of discharge paperwork. INT to Rt AC discontinued with tip intact, pt tolerated well with no complaints. Telemetry discontinued. Pt is leaving facility with daughter back to home.
--- NOTE | 2023-11-28 15:43 | NUR ---
bilingual social worker met with patient to discuss discharge planning. SW mentioned OT recommendations on Tuesday was HH vs SNF. Patient reports to be open to SNF and would like a referral to [facility] as she has been there in the past. SW faxed referral to [facility]. SW as notified by [facility] that patient only has 3 days left of her Medicare days before she would need to private pay. ERNESTINA spoke with PT whom expressed patient did well with her and her walker and would recommend home with home health. SW met with patient and discussed the above information. Patient agreed she would like to return home with home health. Patient reports she currently has [facility] with nursing so she would like to add PT and OT through them. SW explained patient has 30 days from hospital discharge if she were to need SNF she could get set up through her PCP. SW reviewed important message from Medicare. Patient understood and signed form. ERNESTINA made copy, placed original in chart and provided copy to patient. ERNESTINA notified [facility] patient will return home with home health. ERNESTINA Student faxed referral to [facility]. SW was notified by [facility] that they are able to accept patient. ERNESTINA contacted patient's daughter and discussed the discharge plan. Patient's daughter is in agreement with the plan for her to return home with home health. ERNESTINA explained patient has 30 days from day of discharge to go to a SNF if she were to need those services in the next month. Patient's daughter understood and will transport patient home. No further questions or concerns. Discharge plan: Home with [facility]
== END 2023-11-28 13:15 | disposition home or self-care (01) | DRG 689 ==
LOC: COL.ER 22:36 → MEDICAL 11-25 02:04
PROVIDERS: Nurse Practitioner; Physician Assistant; ADMIT Internal Medicine
PROC: 0W9B3ZZ Drainage of Left Pleural Cavity, Percutaneous Approach (ICD-10-PCS; principal; 2023-11-25)
DX: N39.0 Urinary tract infection, site not specified (principal); J18.9 Pneumonia, unspecified organism; J90 Pleural effusion, not elsewhere classified; I44.2 Atrioventricular block, complete; E11.65 Type 2 diabetes mellitus with hyperglycemia; E11.40 Type 2 diabetes mellitus with diabetic neuropathy, unspecified; B37.9 Candidiasis, unspecified; E78.5 Hyperlipidemia, unspecified; B95.2 Enterococcus as the cause of diseases classified elsewhere; I10 Essential (primary) hypertension; Z90.89 Acquired absence of other organs; Z88.1 Allergy status to other antibiotic agents; Z88.5 Allergy status to narcotic agent; Z88.8 Allergy status to other drugs, medicaments and biological substances; Z95.0 Presence of cardiac pacemaker; Z85.828 Personal history of other malignant neoplasm of skin; Z79.4 Long term (current) use of insulin; Z79.899 Other long term (current) drug therapy; Z87.891 Personal history of nicotine dependence; Z79.82 Long term (current) use of aspirin; Z79.84 Long term (current) use of oral hypoglycemic drugs
CPT/HCPCS: J0360; J0456; J0696; J1650; J1815; J7030; J7050; Q9967